=== PATIENT | female | born 1955 | race Caucasian/White ===

== ENCOUNTER → 2016-11-23 | Outpatient (CLI) | payer BC ==
[~2016-11-23] MED LIST: ACET-2469 PO; ALBU17AE23 IH; ALLERGY SHOTS WEEKLY; ALPR.5T PO; ALPR0.5T PO; AMOX-355 PO; ATROPINE; ATRV10T PO; CA C1TAB26 PO; CHLO1CAP; CHLO1CAP PO; CHLORDIAZEPOXIDE; CHOL200025 PO; CLCX200C; CLIDINIUM; CRS350T; DCS100C PO; DILT300C PO; DILTIAZEM 300 MG; DIPHENOXYLATE; DULO20CA; DULO20CA PO; ESTR0.3T; FEXO180T PO; FEXO180T84 PO; FEXO60CA19; FLOVENT HFA; FLUT1DIS27 IH; HYDR-3720 PO; HYDR-3812 PO; HYDR1TAB PO; HYDR1TAB3 PO; INDA2.5T2 PO; INDAPAMIDE 2.5 MG; KCL20TCR PO; KLOR CON; LISI10TA2; LOSA100T16 PO; MULT-1029 PO; NABU750T; NABU750T PO; NFR150C PO; OMEP20CA12 PO; ONDAN4ODT PO; OXYC1TAB95 PO; PNT40TEC PO; POTA20TA8 PO; PRD20T PO; PREMARIN 0.3MG; PROAIR HFA; RT-ALBUINH IH; TRM50T; VITA1CAP59 PO; WRF2.5T PO; [UNRECOGNIZED DRUG - CODE] PO; [UNRECOGNIZED DRUG - OTHER]
--- OUTSIDE RECORDS SUMMARY | 2016-11-23 14:52 | XMS REPORT | Continuity of Care Document ---
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 Medications Current Home Medications Medication Dose Units Route Directions Days/Qty Instructions Start Date Tramadol Hcl 50 Mg Three Times A Day 03/28/10 [Allergy Shots Weekly] 03/28/10 Indapamide 2.5 Mg 2.5 Mg Oral Daily 08/23/12 Atorvastatin Calcium 10 Mg 1 Each Oral Daily 08/23/12 Losartan Potassium 100 Mg 1 Each Oral Daily 08/23/12 Mu-Vits-Min Th/Lycopene/Lutein 1 Each 1 Each Oral Daily 08/23/12 Vitamin B Complex 1 Cap 1 Cap Oral Daily 08/23/12 Diltiazem Hcl (Cartia Xt) 300 Mg 1 Each Oral Daily 11/23/14 Omeprazole 20 Mg 20 Mg Oral Daily 30 11/23/14 Duloxetine Hcl 20 Mg 20 Mg Oral Twice A Day 07/20/16 Fexofenadine Hcl 180 Mg 180 Mg Oral Daily 07/20/16 Alprazolam 0.5 Mg 0.5 Mg Oral Every 8HRS 07/20/16 Fluticasone/Salmeterol 1 Each 1 Each Inhalation Twice A Day 07/20/16 Albuterol Sulfate 18 Gm 2 Puff Inhalation Q 4-6HRS 07/20/16 Cholecalciferol (Vitamin D3) 2,000 Unit 2,000 Unit Oral Daily Potassium Chloride 20 Meq 20 Meq Oral Twice A Day 07/20/16 Acetaminophen/Diphenhydramine 1 Each 2 Each Oral Every 6 Hours for Pain 07/23/16 Hydrocodone/Acetaminophen 1 Each 1-2 Each Oral Every 4HRS as needed for Pain 40 07/23/16 Prednisone 20 Mg 20 Mg Oral As Directed 12 07/23/16 Amoxicillin/Potassium Clav 1 Each 1 Each Oral Twice A Day 7 Days 07/23 Past Home Medications Medication Directions Ordered Status [Klor-Con 8MEG] , 09/15/07 Discontinued [Premarin 0.3MG] , 09/15/07 Discontinued [Cartia Xt Er 300MG] , 09/15/07 Discontinued [Indopamide 2.5MG] , 09/15/07 Discontinued Fexofenadine Hcl 60 Mg Capsule, 09/15/07 Discontinued Celecoxib 200 Mg Capsule, 09/15/07 Discontinued [Chlordiaz/Clid 5/2.5] , 09/15/07 Discontinued [Diph-Atro 2.5/0.25] , 09/15/07 Discontinued [Equate Antidiarrheal] , 09/15/07 Discontinued [Proair Hfa] , 09/15/07 Discontinued [Flovent Hfa] , 09/15/07 Discontinued Acetaminophen/Hydrocodone Bitart 1 Each Tablet, 1 - 2 Each Oral Q4hr Prn 14/07 Discontinued Potassium Chloride 20 Meq Tabsr, 2 Each Oral Daily 03/28/10 Discontinued Estrogens Conjugated 0.3 Mg Tab, Daily 03/28/10 Discontinued Diltiazem Hcl (Cardizem Cd) 300 Mg Cap.sr.24h, 1 Each Oral Daily 03/28/10 Discontinued Indapamide 2.5 Mg Tab, 2.5 Mg Oral Daily 03/28/10 Discontinued Lisinopril 10 Mg Tablet, Daily 03/28/10 Discontinued Nabumetone 750 Mg Tablet, Daily 03/28/10 Discontinued [Yovcbrzq17 Mg] , Twice A Day 03/28/10 Discontinued Fexofenadine Hcl 180 Mg Tablet, 1 Tab Oral Daily 03/28/10 Discontinued Chlordiazepoxide/Clidinium (Librax) 1 Each Capsule, 03/28/10 Discontinued Alprazolam 0.5 Mg Tablet, 1 Tab Oral Three Times A Day And Prn 03/28/10 Discontinued Salmeterol Xinafoate/Fluticasone 1 Disk Inhp, 1 Puff Inhalation Twice A Day 03/28/10 Discontinued Albuterol 17 Gm Aerosol, 2 Puff Inhalation 4-6 Times Daily 03/28/10 Discontinued Oxycodone/Acetaminophen 1 Each Tablet, 1 Each Oral Q 4 - 6 Hrs Prn 03/28/10 Discontinued Carisoprodol 350 Mg Tablet, Qid Prn 03/28/10 Discontinued Ondansetron Hcl 4 Mg Tab, 4 Mg Oral Every 4HRS 03/28/10 Discontinued Diltiazem Hcl (Cartia Xt) 300 Mg Cap.sr.24h, 1 Each Oral Daily 08/23/12 Discontinued Duloxetine Hcl 20 Mg Capsule.dr, 2 Each Oral Daily 08/23/12 Discontinued Nabumetone 750 Mg Tablet, 750 Mg Oral Daily 08/23/12 Discontinued Chlordiazepoxide/Clidinium (Librax) 1 Each Capsule, 1 Each Oral Daily Discontinued Salmeterol Xinafoate/Fluticasone 1 Disk Inhp, 1 Puff Inhalation Twice A Day 08/23/12 Discontinued Ca Cmb No.1/Vit D3/B-6/Fa/B12 1 Each Tablet, 2 Each Oral Daily 08/23/12 Discontinued Pantoprazole Sodium 40 Mg Tablet.dr, 1 Tab Oral Daily 08/23/12 Discontinued Hydrocodone Bit/Acetaminophen 1 Each Tablet, 1 Each Oral Bedtime 08/23/12 Discontinued Acetaminophen/Hydrocodone Bitart 1 Ea Tab, 1 Ea Oral Q6hr Prn 09/01/12 Discontinued Polysaccharide Iron Complex 150 Mg Cap, 1 Each Oral Twice A Day 09/01/12 Discontinued Warfarin Sodium 2.5 Mg Tab, 2.5 Mg Oral Daily@18 09/01/12 Discontinued Acetaminophen/Hydrocodone Bitart 1 Ea Tab, 1 Ea Oral Q6hr Prn 09/01/12 Discontinued Docusate Sodium 100 Mg Cap, 100 Mg Oral Twice A Day 11/23/14 Discontinued Social History Social History Problem Response Recorded Date/Time Recreational Drug Use No 07/23/2016 7:45am Recent Foreign Travel No 07/23/2016 7:45am Recent Infectious Disease Exposure No 07/23/2016 7:45am Sexually Transmitted Disease No 07/23/2016 7:45am HIV/AIDS No 07/23/2016 7:45am Smoking Status Never a Smoker 07/23/2016 7:45am Sexually Transmitted Disease No 07/23/2016 7:45am Query Response Start Date Stop Date Smoking Status Never a Smoker Hospital Discharge Instructions No hospital discharge instructions. Plan of Care Discharge Date 07/23/16 12:29pm Instructions/Education Provided ANESTHESIA INSTRUCTIONS POSTOP DR. RAMEY-SINUS SURGERY DR. RAMEY-NASAL IRRIGATION Prescriptions See Medication Section Functional Status No functional status results. Allergies, Adverse Reactions, Alerts No known allergies. Immunizations No immunization records. Vital Signs Acute Vital Signs Vital Response Date/Time Temperature (Fahrenheit) 97.7 degrees F (97.6 - 99.5) 07/23/2016 12:10pm Temperature (Calculated Celsius) 36.87184 degrees C (36.4 - 37.5) 07/23/2016 12:10pm Temperature Source Temporal 07/23/2016 12:10pm Pulse Rate (adult) 71 bpm (60 - 90) 07/23/2016 12:10pm Respiratory Rate 16 bpm (12 - 24) 07/23/2016 12:10pm O2 Sat by Pulse Oximetry 96 % (88 - 100) 07/23/2016 12:10pm Blood Pressure 133/71 mm Hg 07/23/2016 12:10pm Blood Pressure Mean 93 mm Hg 07/23/2016 7:45am Pain Numeric Pain Scale 8 07/23/2016 11:15am Pain Intensity 3 07/23/2016 12:10pm Height (Feet) 5 feet 07/23/2016 7:45am Height (Inches) 5.50 inches 07/23/2016 7:45am Height (Calculated Centimeters) 166.505092 cm 07/23/2016 7:45am Weight (Pounds) 243 pounds 07/23/2016 7:45am Weight (Ounces) 9.0 oz 07/23/2016 7:45am Weight (Calculated Grams) 202712.09 gm 07/23/2016 7:45am Weight (Calculated Kilograms) 110.819019 kilograms 07/23/2016 7:45am Calculated BMI 39.9 07/23/2016 7:45am Capillary Refill Capillary Refill Less Than 3 Seconds 07/23/2016 7:45am Results Pending Laboratory Results Test Name Collection Date/Time Pending Microbiology Results Procedure Source Collection Date/Time Procedures Procedure Status Date Provider(s) Endoscopic sinus surgery Completed 07/23/16 SHARA RAMEY MD Tracing only of electrocardiogram Completed 07/20/16 SHARA RAMEY MD Encounters Encounter Location Arrival/Admit Date Discharge/Depart Date Attending Provider Departed [facility] 07/23/16 7:20am 12:29pm SHARA RAMEY MD Departed Clinic [facility] 07/20/16 9:12am 07/20/16 11: 11am SHARA RAMEY MD
--- NOTE | 2016-11-23 17:49 | Diagnostic Imaging Report ---
EXAMINATION: PA and lateral chest at 03:13 p.m. INDICATION: Cough. FINDINGS: The mild cardiomegaly noted on 10/17/2015 is again evident and no different. The lungs seem generally clear on the PA view. However, on the lateral view, there is a suggestion of a small area of slightly increased density overlying the cardiac silhouette. It is difficult to identify with certainty on the PA view. However, this appearance does raise the question of a small area of pneumonia/atelectasis involving the right middle lobe. Clinical follow-up is recommended. The lungs are otherwise clear. There is no sign of a pleural effusion. The mediastinum is not widened. The osseous structures are intact. The orthopedic hardware overlying the cervicothoracic junction seen previously is again evident and no different. IMPRESSION: 1. There is a question of mild pneumonia/atelectasis involving the right middle lobe. Clinical follow-up is recommended. 2. There is no acute cardiopulmonary abnormality identified otherwise. Dictated by: Dictated on workstation # [id number]
== END ==
LOC: RAD 14:48
PROVIDERS: ATTEND Family Medicine
DX: R05 Cough (principal)
CPT/HCPCS: 71020

== ENCOUNTER → 2017-06-04 | Outpatient (CLI) | payer BC | LOC: LAB 19:29 | PROVIDERS: ATTEND Nurse Practitioner Family | DX: R10.84 Generalized abdominal pain (principal) | CPT/HCPCS: 87088 ==

== ENCOUNTER → 2018-05-17 | Outpatient (CLI) | payer BC ==
[~2018-05-17] MED LIST changes: +ACHD5005 PO; -HYDR-3812 PO
--- NOTE | 2018-05-17 12:18 | Diagnostic Imaging Report ---
PROCEDURE: US left lower extremity venous. TECHNIQUE: Multiple real-time grayscale images were obtained over the left lower extremity in various projections. Additional duplex Doppler and color Doppler images were also obtained. INDICATION: Left leg pain and swelling. Comparison: None available. Findings: The right common femoral, femoral and popliteal veins are patent by color doppler imaging and without DVT. Visualized proximal aspects of the greater saphenous, deep femoral, posterior tibial and peroneal veins are also patent. All of the evaluated deep venous structures demonstrate normal compressibility and waveform augmentation where applicable. Impression: No right lower extremity deep venous thrombosis (DVT). Dictated by: Dictated on workstation # [id number]
== END ==
LOC: RAD 11:22
PROVIDERS: ATTEND Family Medicine
DX: M79.605 Pain in left leg (principal); M79.89 Other specified soft tissue disorders

== ENCOUNTER → 2018-10-27 | Outpatient (CLI) | payer BC ==
--- NOTE | 2018-10-27 10:12 | Diagnostic Imaging Report ---
CLINICAL INDICATION: Patient with chronic sinusitis and sinus pressure. Patient has history of sinus surgery. EXAM: Axial CT scan of the maxillofacial structures with coronal reformatted images. COMPARISON: Axial CT scan of the maxillofacial structures dated 03/26/2016. FINDINGS: There is minimal mucosal thickening involving the ethmoid sinus. Frontal sinus, sphenoid sinus, and both maxillary sinuses are clear. The mild sinus disease in both maxillary sinus regions has resolved. There is interval postop changes to the paranasal sinuses with bilateral medial maxillary wall antrostomies, bilateral uncinectomies, partial bilateral middle turbinectomies, and partial ethmoidectomies. There is no significant nasal cavity mucosal thickening. Temporal bone structures show no significant abnormality. The extracranial soft tissue, globes and orbits are unremarkable. Nasal septum is midline, stable. IMPRESSION: 1: Interval improved paranasal sinus disease with minimal ethmoid sinus mucosal thickening present. 2: Interval postop changes to the paranasal sinuses, as described above. Dictated by: Dictated on workstation # [id number]
== END ==
LOC: RAD 09:40
PROVIDERS: ATTEND Otolaryngology Otolaryngology/Facial Plastic Surgery
DX: J32.9 Chronic sinusitis, unspecified (principal); Z98.890 Other specified postprocedural states
CPT/HCPCS: 70486

== ENCOUNTER 2020-01-09 17:55 | Emergency (ER) | payer BC ==
[~2020-01-09] VITALS: Ht 165 cm; Wt 113.2 kg
[~2020-01-09 17:55] MED LIST changes: -ACET-2469 PO; +ACET-2715 PO
[2020-01-09 18:35] VITALS: BP_SYST 126; BP_SYST 140; BP_SYST 147; BP_DIAS 75; BP_DIAS 76; BP_DIAS 79
[2020-01-09] MEDS ORDERED: FAMOTIDINE 20 MG (PEPCID) TABLET PO STA (18:39)
[2020-01-09] MEDS ORDERED: ANTACID SUSP 30 ML UDC (MYLANTA) PO ONE (18:45)
[2020-01-09] MEDS ORDERED: LIDOCAINE 2% VISCOUS 15 ML UDC PO ONE (18:45)
[2020-01-09] MEDS ORDERED: ONDANSETRON 4 MG/2 ML (SDV) Z0FRAN IVP ONE (18:45)
[2020-01-09] MEDS ORDERED: NS IV 1000 ML 1,000 ML IV SCH (18:46)
--- NOTE | 2020-01-09 18:46 | ED Abdominal Pain ---
General Chief Complaint: Rect Problems Stated Complaint: ABDOMINAL PAIN Source of Information: Patient, Spouse Exam Limitations: No Limitations History of Present Illness Date Seen by Provider: Jan 09, 2020 Time Seen by Provider: 18:23 Initial Comments Patient presents ER by private conveyance with chief complaint of one week of black tarry stools, generalized abdominal pain starting in her epigastric region radiating up like an acid reflux sensation. She has not taken her omeprazole today. She has a long-standing history of GERD. She just started about a week ago with increased 3 potassium tablets twice a day because her last labs showed her potassium to be a little low. She said about that same time she started having increasing pain and black tarry stools. She's having some mild nausea but no vomiting. No fevers or chills. No cough shortness of breath or chest pain. She has had scopes done in the past lower and upper GI 5 or [address] Rebolledo as well as Dr. Berumen, gastroenterology at [facility]. She says the colonoscopy was normal. She does not remember any concerns with the upper GI. She's had her tubes tied in the past. She's had multiple other surgeries outside of her abdomen. She had a melanoma removed off the back of her leg 27 years ago. She does not have any cardiac history. She did follow up with Dr. Elise a couple times just for hypertension management. Dr. Rascon is her primary care doctor. Allergies and Home Medications Allergies Coded Allergies: No Known Drug Allergies (Unverified , 07/20/16) Home Medications Acetaminophen/Diphenhydramine 1 Each Tablet, 2 EACH PO Q6H, (Reported) Albuterol Sulfate 18 Gm Hfa.aer.ad, 2 PUFF IH Q 4-6HRS, (Reported) Alprazolam 0.5 Mg Tablet, 0.5 MG PO Q8H, (Reported) Amoxicillin/Potassium Clav 1 Each Tablet, 1 EACH PO BID Prescribed by: JOSE NUGENT on 07/23/16 1129 Atorvastatin Calcium 10 Mg Tablet, 1 EACH PO DAILY, (Reported) Cholecalciferol (Vitamin D3) 2,000 Unit Tablet, 2,000 UNIT PO DAILY, (Reported) Diltiazem Hcl 300 Mg Cap.sr.24h, 1 EACH PO DAILY, (Reported) Duloxetine HCl 20 Mg Cap, 20 MG PO BID, (Reported) Fexofenadine HCl 180 Mg Tablet, 180 MG PO DAILY, (Reported) Fluticasone/Salmeterol 1 Each Blst.w.dev, 1 EACH IH BID, (Reported) Hydrocodone Bit/Acetaminophen 1 Each Tablet, 1-2 EACH PO Q4H PRN for PAIN Prescribed by: JOSE UNGENT on 07/23/16 1129 Indapamide 2.5 Mg Tablet, 2.5 MG PO DAILY, (Reported) Losartan Potassium 100 Mg Tablet, 1 EACH PO DAILY, (Reported) Mu-Vits-Min Th/Lycopene/Lutein 1 Each Tablet, 1 EACH PO DAILY, (Reported) Omeprazole 20 Mg Capsule.dr, 20 MG PO DAILY, (Reported) Potassium Chloride 20 Meq Tab.er.prt, 20 MEQ PO BID, (Reported) Prednisone 20 Mg Tab, 20 MG PO UD Prescribed by: JOSE NUGENT on 07/23/16 1129 Tramadol Hcl 50 Mg Tab, TID, (Reported) Vitamin B Complex 1 Cap Capsule, 1 CAP PO DAILY, (Reported) Patient Home Medication List Home Medication List Reviewed: Yes Review of Systems Review of Systems Constitutional: No chills, No diaphoresis EENTM: No Blurred Vision, No Double Vision Respiratory: Denies Cough, Denies Shortness of Air Cardiovascular: Denies Chest Pain, Denies Edema Gastrointestinal: See HPI; Denies Abdomen Distended; Abdominal Pain; Denies Constipated, Denies Diarrhea; Nausea, Poor Appetite; Denies Vomiting Genitourinary: Denies Burning, Denies Discharge Musculoskeletal: No back pain, No joint pain Skin: No pruritus, No rash All Other Systems Reviewed Negative Unless Noted: Yes Past Qjsdiag-Vkgxrc-Mmlavb Hx Patient Social History Alcohol Use: Denies Use Recreational Drug Use: No Smoking Status: Never a Smoker Recent Foreign Travel: No Contact w/Someone Who Travel: No Recent Hopitalizations: Yes (SURGERIES, RECENT MOLE REMOVED FROM LEFT SHOULDER BLADE) Immunizations Up To Date Tetanus Booster (TDap): Less than 5yrs PED Vaccines UTD: Yes Date of Pneumonia Vaccine: Nov 23, 2012 Date of Influenza Vaccine: Nov 23, 2012 Past Medical History Surgeries: Yes (LIPOMA UNDER R ARM X3, WISDOM TEETH, BILAT LITTLE TOES, L KNEE SCOPE, ) Respiratory: Yes Asthma Cardiac: Yes Neurological: Yes Reproductive Disorders: Yes Sexually Transmitted Disease: No HIV/AIDS: No Gastrointestinal: Yes Gastroesophageal Reflux, Diverticulosis, Irritable Bowel Musculoskeletal: Yes (OSTEOARTHRITIS) Degenerate Disk Disease, Arthritis, Fibromyalgia Endocrine: No Loss of Vision: Bilateral Hearing Impairment: Denies Cancer: Yes (CLL-CHRONIC LYMPHATIC LEUKEMIA, NHL-NONHODGKINS LYMPHOMA) Melanoma Psychosocial: Yes (TAKES CYMALTA FOR FIBROMYALGIA) Anxiety Integumentary: Yes (DERMATITIS) Blood Disorders: Yes (HX ANEMIA) Adverse Reaction/Blood Tranf: No (N/A) Physical Exam Vital Signs Capillary Refill : Height/Weight/BMI Height: 5'5.50" Weight: 243lbs. 9.0oz. 110.495153nk; 40.43 BMI Method: General Appearance: WD/WN, no apparent distress HEENT: PERRL/EOMI, pharynx normal Neck: full range of motion, supple, normal inspection Respiratory: lungs clear, normal breath sounds, no respiratory distress, no accessory muscle use Cardiovascular: normal peripheral pulses, regular rate, rhythm Peripheral Pulses: 2+ Radial Pulses (R), 2+ Radial Pulses (L) Gastrointestinal: normal bowel sounds (active), non tender, soft, no organomegaly Rectal: normal exam, normal rectal tone (rectal vault free of mass or stool), black stool; No mass Neurologic/Psychiatric: alert, normal mood/affect, oriented x 3 Skin: normal color, warm/dry Progress/Results/Core Measures Results/Orders Lab Results Laboratory Tests Test 01/09/20 18:38 Range/Units White Blood Count 15.7 H 4.3-11.0 10^3/uL Red Blood Count 4.57 4.35-5.85 10^6/uL Hemoglobin 12.3 11.5-16.0 G/DL Hematocrit 38 35-52 % Mean Corpuscular Volume 83 80-99 FL Mean Corpuscular Hemoglobin 27 25-34 PG Mean Corpuscular Hemoglobin Concent 32 32-36 G/DL Red Cell Distribution Width 15.6 H 10.0-14.5 % Platelet Count 393 130-400 10^3/uL Mean Platelet Volume 9.3 7.4-10.4 FL Neutrophils (%) (Auto) 77 H 42-75 % Lymphocytes (%) (Auto) 16 12-44 % Monocytes (%) (Auto) 6 0-12 % Eosinophils (%) (Auto) 1 0-10 % Basophils (%) (Auto) 0 0-10 % Neutrophils # (Auto) 12.0 H 1.8-7.8 X 10^3 Lymphocytes # (Auto) 2.5 1.0-4.0 X 10^3 Monocytes # (Auto) 1.0 0.0-1.0 X 10^3 Eosinophils # (Auto) 0.2 0.0-0.3 10^3/uL Basophils # (Auto) 0.0 0.0-0.1 10^3/uL Neutrophils % (Manual) 69 % Lymphocytes % (Manual) 25 % Monocytes % (Manual) 3 % Eosinophils % (Manual) 1 % Band Neutrophils 2 % Dohle Bodies SLIGHT Blood Morphology Comment NORMAL Sodium Level 138 135-145 MMOL/L Potassium Level 3.6 3.6-5.0 MMOL/L Chloride Level 98 98-107 MMOL/L Carbon Dioxide Level 26 21-32 MMOL/L Anion Gap 14 5-14 MMOL/L Blood Urea Nitrogen 10 7-18 MG/DL Creatinine 0.67 0.60-1.30 MG/DL Estimat Glomerular Filtration Rate > 60 BUN/Creatinine Ratio 15 Glucose Level 91 70-105 MG/DL Calcium Level 9.9 8.5-10.1 MG/DL Corrected Calcium 9.6 8.5-10.1 MG/DL Magnesium Level 2.1 1.6-2.4 MG/DL Total Bilirubin 0.3 0.1-1.0 MG/DL Aspartate Amino Transf (AST/SGOT) 20 5-34 U/L Alanine Aminotransferase (ALT/SGPT) 26 0-55 U/L Alkaline Phosphatase 110 40-136 U/L Total Protein 7.3 6.4-8.2 GM/DL Albumin 4.4 3.2-4.5 GM/DL My Orders Orders - MARGARITA MCCRAY Occult Blood Stool (01/09/20 18:39) Cbc With Automated Diff (01/09/20 18:39) Comprehensive Metabolic Panel (01/09/20 18:39) Magnesium (01/09/20 18:39) Ondansetron Injection (Zofran Injectio (01/09/20 18:45) Lidocaine 2% Viscous 15 Ml (Xylocaine Vi (01/09/20 18:45) Famotidine Tablet (Pepcid Tablet) (01/09/20 18:39) Antacid Suspension (Mylanta Suspension (01/09/20 18:45) Ed Iv/Invasive Line Start (01/09/20 18:46) Ns Iv 1000 Ml (Sodium Chloride 0.9%) (01/09/20 18:46) Manual Differential (01/09/20 18:38) Medications Given in ED Current Medications Medications Dose Ordered Sig/Rolando Route Start Time Stop Time Status Last Admin Dose Admin Al Hydrox/Mg Hydrox/Simethicone 30 ml ONCE ONCE PO 01/09/20 18:45 01/09/20 18:46 DC 01/09/20 18:53 30 ML Lidocaine HCl 15 ml ONCE ONCE PO 01/09/20 18:45 01/09/20 18:46 DC 01/09/20 18:54 15 ML Ondansetron HCl 4 mg ONCE ONCE IVP 01/09/20 18:45 01/09/20 18:46 DC 01/09/20 18:54 4 MG Progress Progress Note #1: Time: 18:44 Progress Note Plan to check some labs to see if she is significant delay anemic. Fecal occult blood test. She has a tiny amount of black stool in the rectal vault. GI cocktail. Orthostatic vital signs do demonstrate a significant dip from 146 to 126 systolic lying to standing. Plan to give her a liter fluids and reexamined. Progress Note #2: Time: 20:32 Progress Note She received some relief from the GI cocktail. She has not had any diarrhea or vomiting. She's not longer having nausea. Plan to send her home with some ondansetron, Carafate and omeprazole twice a day. She can follow-up with either her GI doctor or Dr. Rebolledo who have both scoped her in the past to talk about whether an upper GI endoscopy would be indicated. Fecal occult blood test was negative initially. Departure Impression Primary Impression: Gastritis Qualified Codes: K29.00 - Acute gastritis without bleeding Disposition: HOME, SELF-CARE Condition: Stable Departure-Patient Inst. Decision time for Depature: 20:20 Referrals: VALERY RASCON MD (PCP/Family) Primary Care Physician Patient Instructions: Gastritis (DC) Add. Discharge Instructions: You may resume your maintenance dose of potassium. Take potassium with meals. For the next 2 weeks you should take Carafate 30 minutes prior to meals and at bedtime for a total of 4 times a day. Omeprazole 20 mg twice a day for the next month. Ondansetron one tablet every 6 hours as needed for nausea or vomiting. Call your GI doctor or Dr. Rebolledo for follow-up over the next week or 2. Return to the ER if you begin to experience intractable pain despite Tylenol and ibuprofen, nausea and vomiting despite ondansetron or fever. All discharge instructions reviewed with patient and/or family. Voiced understanding. Scripts Ondansetron (Ondansetron Odt) 4 Mg Tab.rapdis 4 MG PO Q6H PRN for NAUSEA/VOMITING, #8 TAB 0 Refills Prov: MARGARITA MCCRAY 01/09/20 Sucralfate (Carafate) 1 Gm Tablet 1 GM PO QIDACHS for 14 Days, #56 TAB 0 Refills Prov: MARGARITA MCCRAY 01/09/20 Omeprazole (Omeprazole) 20 Mg Capsule.dr 20 MG PO BID for 30 Days, #60 CAP 0 Refills Prov: MARGARITA MCCRAY 01/09/20 Copy Copies To 1: ALISHA REBOLLEDO DO MARGARITA MCCRAY Jan 09, 2020 18:46
[2020-01-09 18:47] LABS: BASOPHILS % (AUTO) 0 % (0-10); EOSINOPHILS # (AUTO) 0.2 10^3/uL (0.0-0.3); EOSINOPHILS % (AUTO) 1 % (0-10); HEMATOCRIT 38 % (35-52); HEMOGLOBIN 12.3 G/DL (11.5-16.0); LYMPHOCYTES # (AUTO) 2.5 X 10^3 (1.0-4.0); LYMPHOCYTES % (AUTO) 16 % (12-44); MEAN CORPUSCULAR HEMOGLOBIN 27 PG (25-34); MEAN CORPUSCULAR HGB CONC 32 G/DL (32-36); MEAN CORPUSCULAR VOLUME 83 FL (80-99); MEAN PLATELET VOLUME 9.3 FL (7.4-10.4); MONOCYTES % (AUTO) 6 % (0-12); NEUTROPHILS % (AUTO) 77 % (42-75); PLATELET COUNT 393 10^3/uL (130-400); RED CELL DISTRIBUTION WIDTH 15.6 % (10.0-14.5); WHITE BLOOD COUNT 15.7 10^3/uL (4.3-11.0)
[2020-01-09 19:04] LABS: BAND NEUTROPHILS 2 %; EOSINOPHILS % (MANUAL) 1 %; LYMPHOCYTES % (MANUAL) 25 %; MONOCYTES % (MANUAL) 3 %; NEUTROPHILS % (MANUAL) 69 %; RBC MORPH NORMAL
[2020-01-09 19:10] LABS: ALANINE AMINOTRANSFERASE 26 U/L (0-55); ALBUMIN 4.4 GM/DL (3.2-4.5); ALKALINE PHOSPHATASE 110 U/L (40-136); BILIRUBIN,TOTAL 0.3 MG/DL (0.1-1.0); BUN/CREATININE RATIO 15; CALCIUM 9.9 MG/DL (8.5-10.1); CARBON DIOXIDE 26 MMOL/L (21-32); CHLORIDE 98 MMOL/L (98-107); CREATININE SERUM 0.67 MG/DL (0.60-1.30); GFR ESTIMATED > 60; GLUCOSE 91 MG/DL (70-105); MAGNESIUM 2.1 MG/DL (1.6-2.4); POTASSIUM 3.6 MMOL/L (3.6-5.0); SODIUM 138 MMOL/L (135-145); TOTAL PROTEIN 7.3 GM/DL (6.4-8.2)
[2020-01-09] MEDS ORDERED: ONDA4TAB11 PO (20:32)
[2020-01-09] MEDS ORDERED: SUCR1TAB36 PO (20:32)
[2020-01-09] MEDS ORDERED: OMEP20CA18 PO (20:32)
[2020-01-09] MEDS ORDERED: RX-ONDANSETRON 4 MG ODT (ZOFRAN) PPK #4 PO STA (20:33)
[2020-01-09 20:44] VITALS: BP 155/84
== END 2020-01-09 20:44 | disposition home or self-care (01) ==
LOC: EDUNIT# 17:55 → ER 17:58
DX: K29.70 Gastritis, unspecified, without bleeding (principal); K21.9 Gastro-esophageal reflux disease without esophagitis; I10 Essential (primary) hypertension; J45.909 Unspecified asthma, uncomplicated; F41.9 Anxiety disorder, unspecified; Z85.820 Personal history of malignant melanoma of skin
CPT/HCPCS: 36415; 80053; 83735; 85007; 85027

== ENCOUNTER 2020-01-23 05:40 | Outpatient (CLI) | payer BC ==
[~2020-01-23] VITALS: Ht 165 cm; Wt 68.0 kg
[~2020-01-23 05:40] MED LIST changes: +OMEP20CA18 PO; +ONDA4TAB11 PO; +SUCR1TAB36 PO
[2020-01-23] MEDS ORDERED: CHOL500049 PO (10:44)
[2020-01-23] MEDS ORDERED: ACET325T38 PO (10:44)
[2020-01-23] MEDS ORDERED: ATOR10TA66 PO (10:44)
[2020-01-23] MEDS ORDERED: DOCU100T7 PO (10:44)
[2020-01-23] MEDS ORDERED: CARB-254 OP (10:44)
[2020-01-23] MEDS ORDERED: LOSA100T57 PO (10:44)
[2020-01-23] MEDS ORDERED: FAMO-208 PO (10:44)
[2020-01-23] MEDS ORDERED: MULT-618 PO (10:44)
[2020-01-23] MEDS ORDERED: METO-333 PO (10:44)
[2020-01-23] MEDS ORDERED: TRM50T PO (10:44)
[2020-01-23] MEDS ORDERED: SIME80TA66 PO (10:44)
[2020-01-23] MEDS ORDERED: NABU750T PO (10:44)
[2020-01-23] MEDS ORDERED: DILT300C26 PO (10:44)
[2020-01-23] MEDS ORDERED: VITA1CAP19 PO (10:44)
[2020-01-23] MEDS ORDERED: ALB0.5V INH (10:44)
[2020-01-23] MEDS ORDERED: ALPR1TAB7 PO (10:44)
[2020-01-23] MEDS ORDERED: POTA10CA43 PO (10:44)
[2020-01-23] MEDS ORDERED: HYDR50TA3 PO (10:44)
== END 2020-01-23 10:50 | disposition home or self-care (01) ==
LOC: PREOP 05:40
PROVIDERS: ATTEND Surgery
DX: Z01.818 Encounter for other preprocedural examination (principal)

== ENCOUNTER 2020-01-30 07:44 | Day surgery (SDC) | payer BC ==
[~2020-01-30] VITALS: Ht 165 cm; Wt 68.0 kg
[~2020-01-30 07:44] MED LIST changes: +ACET325T38 PO; +ALB0.5V INH; +ALPR1TAB7 PO; +ATOR10TA66 PO; +CARB-254 OP; +CHOL500049 PO; +DILT300C26 PO; +DOCU100T7 PO; +FAMO-208 PO; +HYDR50TA3 PO; +LOSA100T57 PO; +METO-333 PO; +MULT-618 PO; +POTA10CA43 PO; +SIME80TA66 PO; +TRM50T PO; +VITA1CAP19 PO
[2020-01-30] MEDS ORDERED: LACTATED RINGERS 1,000 ML IV STA (08:07)
[2020-01-30] MEDS ORDERED: LACTATED RINGERS 1,000 ML IV ONE (08:07)
[2020-01-30] MEDS ORDERED: HURRICAINE EXT TUBE (BENZOCAINE) XX PRN (08:15)
[2020-01-30] MEDS ORDERED: KETAMINE/NaCl 50 MG/5 ML SYRINGE (ED ONLY) ONE (08:23)
[2020-01-30] MEDS ORDERED: MIDAZOLAM 2 MG/2 ML (VERSED) VIAL ONE (08:23)
[2020-01-30] MEDS ORDERED: proPOfol 200 MG/20 ML (DIPRIVAN) VIAL IV ONE (08:23)
[2020-01-30 08:34] VITALS: BP 148/94
--- NOTE | 2020-01-30 08:53 | Progress Note-Pre Operative ---
Pre-Operative Progress Note H&P Reviewed The H&P was reviewed, patient examined and no changes noted. Date Seen by Provider: Jan 30, 2020 Time Seen by Provider: 08:52 Date H&P Reviewed: Jan 30, 2020 Time H&P Reviewed: 08:52 Pre-Operative Diagnosis: epigastric abd pain, melena, family history colon cancer ALISHA REBOLLEDO DO Jan 30, 2020 08:53
[2020-01-30] MEDS ORDERED: ceFAZolin 2 GM IV Premixed 50 ML IV ONE (09:00)
[2020-01-30] MEDS ORDERED: HURRICAINE EXT TUBE (BENZOCAINE) ONE (09:23)
[2020-01-30 10:10] VITALS: BP 161/76
[2020-01-30 10:15] VITALS: BP 163/78
[2020-01-30] MEDS ORDERED: PANT40TA2 PO (10:20)
--- NOTE | 2020-01-30 10:20 | Discharge Inst-Simple/Standard ---
Discharge Inst-Standard Discharge Medications New, Converted or Re-Newed RX: Transmitted to Pharmacy Patient Instructions/Follow Up Plan of Care/Instructions/FU: Elizabeth 4-6 weeks. Activity as Tolerated: Yes Discharge Diet: Regular Diet ALISHA REBOLLEDO DO Jan 30, 2020 10:20
--- NOTE | 2020-01-30 10:22 | Progress Note-Post Operative ---
Post-Operative Progess Note Surgeon (s)/Milling Operator (s) Surgeon ALISHA REBOLLEDO DO Milling Operator: na Pre-Operative Diagnosis epigastric abd pain, melena, family history colon cancer Post-Operative Diagnosis gastritis, ascending submucosal lipoma, diverticulosis Procedure & Operative Findings Date of Procedure 01/30/20 Procedure Performed/Findings egd c biopsies, colonoscopy Anesthesia Type per [facility] Estimated Blood Loss Estimated blood loss (mL): none Specimens/Packing Specimens Removed antrum, ge ALISHA REBOLLEDO DO Jan 30, 2020 10:22
[2020-01-30 10:45] VITALS: BP 164/84
[2020-01-30 11:03] VITALS: BP 164/84
--- NOTE | 2020-01-30 11:55 | OPERATIVE REPORT ---
DATE OF SERVICE: 01/30/2020 PREOPERATIVE DIAGNOSES: Epigastric abdominal pain, melena, family history of colon cancer. POSTOPERATIVE DIAGNOSES: Gastritis, ascending submucosal lipoma, diverticulosis. PROCEDURE: EGD with biopsies, colonoscopy. SURGEON: Alisha Johnson DO ANESTHESIA: Per MDA. ESTIMATED BLOOD LOSS: None. COMPLICATIONS: None. SPECIMENS: Antrum and GE junction. INDICATIONS: The patient is a 64-year-old female with epigastric abdominal pain, melena and with family history of colon cancer. She understands risks and benefits of procedure and wished to proceed with procedure. Consent was signed in the chart. DESCRIPTION OF PROCEDURE: The patient was taken to the endoscopy suite, placed in left lateral recumbent position. Timeout was performed. Scope was inserted in mouth, down the esophagus, stomach and into the duodenum without difficulty. There were no polyps, masses or ulcerations. Scope was slowly retracted back into the stomach, which had gastritis appearance with small amount of slight oozing of blood. Biopsy of this area was obtained. No masses or ulcerations. Benign appearing polyps throughout the stomach. Scope was retroflexed noting no other pathology. Scope was returned to its normal position, slowly withdrawn to the distal esophagus, which biopsy of the GE junction was obtained. There were no polyps, masses or ulcerations. Scope was then slowly retracted back until completely removed. The patient tolerated procedure well without any complications. Colonoscopy was then performed. Digital rectal exam was performed. There were no palpable polyps, masses or ulcerations. Scope was inserted in the rectum, advanced all the way to cecum with minimal difficulty. Prep was adequate. Scope was then slowly retracted back. There were no polyps, masses or ulcerations within the cecum, ascending colon. In the ascending colon, a submucosal lipoma present. Scope was then continuously retracted back. There were no other polyps, masses or ulcerations within the remainder of the ascending, transverse, descending and sigmoid colon. In sigmoid colon, a minimal amount of diverticulosis present. Scope was then continuously retracted back the rectum where it was also retroflexed noting no other pathology. Scope was returned to its normal position, slowly withdrawn until completely removed. The patient tolerated procedure well without any complications. She was taken to recovery room in stable condition. RECOMMENDATIONS: The patient will be started on Protonix 40 mg daily. We will stop her omeprazole. We would recommend repeat colonoscopy in 5 years unless she has any change before that due to family history of colon cancer. Job ID: [id number] DocumentID: [id number] Dictated Date: 01/30/2020 10:25:15 Marketing Intelligence Manager Date: 01/30/2020 11:53:45 Dictated By: ALISHA JOHNSON DO
--- NOTE | 2020-02-02 13:54 | Anesthesia-General Post-Op ---
MAC Post Op Complications Complications None Follow Up Care/Instructions Patient Instructions None needed. Anesthesiology Discharge Order Discharge Order Post-dated progress note: Patient was seen after the procedure on 01-30-20 at 1025 and she was doing well, no complaints, stable vital signs, no apparent adverse anesthesia problems. ANJU OAKES DO Feb 02, 2020 13:54
== END 2020-01-30 11:03 | disposition home or self-care (01) ==
LOC: ENDO 07:44
PROVIDERS: ATTEND Surgery
DX: K29.70 Gastritis, unspecified, without bleeding (principal); D17.5 Benign lipomatous neoplasm of intra-abdominal organs; K57.30 Diverticulosis of large intestine without perforation or abscess without bleeding; Z80.0 Family history of malignant neoplasm of digestive organs; I10 Essential (primary) hypertension; J45.909 Unspecified asthma, uncomplicated; K21.9 Gastro-esophageal reflux disease without esophagitis; E78.2 Mixed hyperlipidemia; Z79.899 Other long term (current) drug therapy; Z85.820 Personal history of malignant melanoma of skin; E66.01 Morbid (severe) obesity due to excess calories; Z68.41 Body mass index [BMI] 40.0-44.9, adult

== ENCOUNTER → 2020-03-11 | Outpatient (CLI) | payer BC ==
[~2020-03-11] MED LIST changes: +PANT40TA2 PO
--- NOTE | 2020-03-11 10:49 | Diagnostic Imaging Report ---
PROCEDURE: US Gallbladder. TECHNIQUE: Multiple real-time grayscale images were obtained over the right upper quadrant in various projections. INDICATION: Abdominal pain COMPARISON: None FINDINGS: The liver is mildly large measuring 22 cm in length. Echogenicity appears normal. No focal lesions are seen. No biliary dilatation is seen. The main portal vein is hepatopetal. The common bile duct is not seen. The gallbladder wall is not thickened. No shadowing stones are seen. Imaged portions of the pancreas are unremarkable, although portions are obscured by bowel gas. Imaged portions of the aorta and IVC are unremarkable. The right kidney measures 11.3 cm in length. No abnormalities are seen. No free fluid is seen. Sonographic Cee sign is negative. IMPRESSION: 1. No acute gallbladder abnormality is seen. 2. Hepatomegaly with no acute liver abnormalities seen. Dictated by: Dictated on workstation # [id number]
--- NOTE | 2020-03-11 10:49 | Diagnostic Imaging Report ---
INDICATION: Lump along the left posterior calf. TECHNIQUE/FINDINGS: Sonographic interrogation of the area of lump in the left posterior calf was performed. No sonographic abnormality is seen. No solid or cystic mass is detected. IMPRESSION: No sonographic abnormality is detected. Dictated by: Dictated on workstation # [id number]
== END ==
LOC: RAD 08:54
PROVIDERS: ATTEND Surgery
DX: R22.40 Localized swelling, mass and lump, unspecified lower limb (principal); R16.0 Hepatomegaly, not elsewhere classified
CPT/HCPCS: 76705; 76881

== ENCOUNTER → 2020-03-11 | Outpatient (CLI) | payer BC ==
--- NOTE | 2020-03-11 11:28 | Diagnostic Imaging Report ---
INDICATION: Palpable lump right breast. Correlation is made with prior mammogram from 03/16/2018 and 09/17/2016. 2-D and 3-D bilateral diagnostic mammography was performed with CAD. A BB markers placed at the area of palpable abnormality along the medial inferior right breast. Both breasts are heterogeneously dense, limiting the sensitivity of mammography. The parenchymal pattern is stable. There are scattered benign calcifications. No dominant mass or malignant appearing microcalcifications are seen. Axillae are unremarkable. IMPRESSION: BI-RADS 0 No mammographic features suspicious for malignancy are identified. Even so, directed sonographic interrogation of the area of palpable abnormality in the right breast is recommended and will be performed today. ACR BI-RADS Category 0: Incomplete. (Needs additional imaging evaluation). Result letter will be mailed to the patient. Note: At least 10% of breast cancer is not imaged by mammography. Dictated by: Dictated on workstation # [id number]
--- NOTE | 2020-03-11 11:59 | Diagnostic Imaging Report ---
INDICATION: Lump in the lower inner right breast. COMPARISON: Correlation is made with the diagnostic mammogram from earlier this same day. FINDINGS: Sonographic interrogation of the area of lump in the lower inner right breast was performed. No sonographic abnormality is seen. No solid or cystic mass is detected. IMPRESSION: No sonographic abnormality is detected. Continued close and clinical self breast exams are recommended to confirm stability of the palpable abnormality. ACR BI-RADS Category 1: Negative. Dictated by: Dictated on workstation # [id number]
== END ==
LOC: RAD 10:07
PROVIDERS: ATTEND Nurse Practitioner
DX: Z12.31 Encounter for screening mammogram for malignant neoplasm of breast (principal); C91.10 Chronic lymphocytic leukemia of B-cell type not having achieved remission; N63.14 Unspecified lump in the right breast, lower inner quadrant
CPT/HCPCS: 77062; 77066

== ENCOUNTER → 2020-05-07 | Outpatient (CLI) | payer BC ==
--- NOTE | 2020-05-07 09:52 | Diagnostic Imaging Report ---
PROCEDURE: CT Sinus w/o Contrast. TECHNIQUE: Multiple contiguous axial images were obtained through the sinuses without the use of intravenous contrast. Coronal reformations were performed. All CT scans use one or more of the following dose optimizing techniques: automated exposure control, MA and/or KvP adjustment based on a patient size and exam type, or iterative reconstruction. INDICATION: Chronic sinusitis. Headache. Ear problems. COMPARISON: CT sinuses on 10/27/2018. FINDINGS: Surgical changes are again noted in the paranasal sinuses. No evidence of mucosal thickening or fluid levels in the paranasal sinuses. The sphenoethmoid and frontoethmoid recesses are patent and unremarkable. Small nasal polyps are seen along the inferior turbinates. The mastoid air cells are well pneumatized. The bony nasal septum is midline. No acute facial fractures. The globes and orbits are symmetric and unremarkable. Included intracranial contents show no acute abnormalities. The included soft tissues of the head are normal in appearance. IMPRESSION: 1. Stable post surgical changes in the paranasal sinuses. No evidence of active sinus disease. 2. Small nasal polyps along the bilateral inferior turbinates. Dictated by: Dictated on workstation # [id number]
== END ==
LOC: RAD 08:27
PROVIDERS: ATTEND Otolaryngology Otolaryngology/Facial Plastic Surgery
DX: J33.9 Nasal polyp, unspecified (principal); J32.9 Chronic sinusitis, unspecified; Z98.890 Other specified postprocedural states
CPT/HCPCS: 70486

== ENCOUNTER → 2020-07-15 | Outpatient (CLI) | payer BC | LOC: CARD 09:30 | PROVIDERS: ATTEND Internal Medicine Cardiovascular Disease | DX: I34.0 Nonrheumatic mitral (valve) insufficiency (principal); I11.9 Hypertensive heart disease without heart failure; E78.2 Mixed hyperlipidemia; C85.90 Non-Hodgkin lymphoma, unspecified, unspecified site | CPT/HCPCS: 93306 ==

== ENCOUNTER → 2020-08-07 | Outpatient (CLI) | payer BC ==
[~2020-08-07] VITALS: Ht 165 cm; Wt 108.0 kg
[~2020-08-07] MED LIST changes: -ACET-2715 PO; +ACET-3075 PO; +CATHETER FLUSH 10 ML SYR IV PRN; +REGADENOSON 0.4 MG/5 ML SYR (LEXISCAN) IV ONE
[2020-08-07 09:14] VITALS: BP 162/90
--- NOTE | 2020-08-07 12:56 | Cardiology Stress Test Report ---
Stress Test Report Date of Procedure/Referring: Date of Procedure: Aug 07, 2020 PCP Aaron Elise MD Admitting Physician Cesar Mcginnis MD Indications: Dyspnea, hypertension Baseline Heart Rate: 83 Baseline Blood Pressure: Blood Pressure Systolic: 162 Blood Pressure Diastolic: 90 Baseline Vitals Vital Signs Date Time Temp Pulse Resp B/P (MAP) Pulse Ox O2 Delivery O2 Flow Rate FiO2 08/07/20 09:14 86 162/90 (114) 97 Baseline EKG: Baseline EKG: normal sinus rhythm Summary After explaining the procedure to the patient, she signed a consent and then brought to the stress nuclear laboratory. Patient received 0.4 mg Lexiscan for stress test, ECG, heart rate and blood pressure were monitored continuously. Resting and stress dose of radio tracer were injected, imaging was acquired and reviewed in short axis, horizontal long axis and vertical long axis views. TID: 1 SSS: 3 SDS: 3 EF: 60 1. Patient tolerated Lexiscan well 2. Breast attenuation with typical female pattern, mild decreased uptake at the basal to mid anterior wall with subtle reversibility, no significant ischemia or infarction on SPECT images 3. Normal left ventricular size, EF 60 percent AARON ELISE MD Aug 07, 2020 12:56
== END ==
LOC: CARD 08:00
PROVIDERS: ATTEND Internal Medicine Cardiovascular Disease
DX: C85.90 Non-Hodgkin lymphoma, unspecified, unspecified site (principal); E78.2 Mixed hyperlipidemia; I10 Essential (primary) hypertension
CPT/HCPCS: 78452; 93017; A9502

== ENCOUNTER → 2020-09-23 | Outpatient (CLI) | payer BC ==
[~2020-09-23] MED LIST changes: +NABU-90 PO; -REGADENOSON 0.4 MG/5 ML SYR (LEXISCAN) IV ONE
--- NOTE | 2020-09-23 14:14 | Diagnostic Imaging Report ---
INDICATION: Epigastric pain TECHNIQUE: Acquisitions were acquired of the abdomen after administration of 5.44 mCi of technetium 99m Choletec. Ejection fraction was calculated after the patient ingested 8 ounces of Ensure. FINDINGS: There is homogeneous uptake of isotope throughout the liver. Significant accumulation within the gallbladder by 45 minutes. Free flow of activity into the small bowel. Ejection fraction 7.7% IMPRESSION: No evidence of cystic duct obstruction however there is an abnormally low ejection fraction of 7.7% Dictated by: Dictated on workstation # [id number]
== END ==
LOC: CARD 12:45
PROVIDERS: ATTEND Surgery
DX: R10.13 Epigastric pain (principal)
CPT/HCPCS: 78227; A9537

== ENCOUNTER → 2020-10-03 | Outpatient (CLI) | payer BC ==
[~2020-10-03] MED LIST changes: -CATHETER FLUSH 10 ML SYR IV PRN
--- NOTE | 2020-10-03 11:49 | Diagnostic Imaging Report ---
PROCEDURE: US PELVIC (NON OB) TECHNIQUE: Multiple real-time grayscale images were obtained over the pelvis in various projections transabdominally. INDICATION: Pelvic pain. There are no prior pelvic ultrasound examinations available for comparison. By history, the uterus and ovaries are surgically absent. There is no pelvic mass or free fluid collection evident. The urinary bladder is grossly unremarkable. IMPRESSION: 1. There is no evidence for an acute abnormality in this post hysterectomy/bilateral oophorectomy patient. 2. If clinical concern regarding an underlying abnormality persists, then CT of the abdomen and pelvis would be recommended for further study. Dictated by: Dictated on workstation # [id number]
== END ==
LOC: RAD 10:45
PROVIDERS: ATTEND Family Medicine
DX: R10.2 Pelvic and perineal pain (principal)
CPT/HCPCS: 76856

== ENCOUNTER 2020-10-15 05:33 | Outpatient (RCR) | payer BC ==
[~2020-10-15] VITALS: Ht 165.1 cm; Wt 110.0 kg
[2020-10-15] MEDS ORDERED: MTP25TSR PO (10:36)
[2020-10-15] MEDS ORDERED: POTA20TA8 PO (10:36)
[2020-10-15] MEDS ORDERED: PANT40TA52 PO (10:36)
[2020-10-15] MEDS ORDERED: ACHYD1T PO (10:36)
== END 2020-10-15 10:53 | disposition home or self-care (01) ==
LOC: PREOP 05:33
PROVIDERS: ATTEND Surgery
DX: Z01.818 Encounter for other preprocedural examination (principal); K82.8 Other specified diseases of gallbladder; Z20.828 Contact with and (suspected) exposure to other viral communicable diseases
CPT/HCPCS: 87635

== ENCOUNTER 2020-10-17 07:52 | Day surgery (SDC) | payer BC ==
[2020-10-17] VITALS (11 sets, daily range): BP systolic 123–158; BP diastolic 63–94
[~2020-10-17] VITALS: Ht 165.1 cm; Wt 110.0 kg
[~2020-10-17 07:52] MED LIST changes: +ACHYD1T PO; +MTP25TSR PO; +PANT40TA52 PO
--- NOTE | 2020-10-17 08:04 | Progress Note-Pre Operative ---
Pre-Operative Progress Note H&P Reviewed The H&P was reviewed, patient examined and no changes noted. Date Seen by Provider: Oct 17, 2020 Time Seen by Provider: 08:04 Date H&P Reviewed: Oct 17, 2020 Time H&P Reviewed: 08:04 Pre-Operative Diagnosis: biliary dyskinesia, epigastric abd pain ALISHA REBOLLEDO DO Oct 17, 2020 08:04
[2020-10-17] MEDS: LACTATED RINGERS 1,000 ML IV PRN ×2 (08:10→09:25)
[2020-10-17] MEDS ORDERED: LIDOCAINE/EPI 1%-1:100,000 (XYLOCAINE) 20ML ONE (08:20)
[2020-10-17] MEDS ORDERED: IOPAMIDOL 61% 30 ML (ISOVUE 300) VIAL ONE (08:21)
[2020-10-17] MEDS ORDERED: SEVOFLURANE (ULTANE) 15 ML INHAL SOLN ONE ×6 (08:24→09:59)
[2020-10-17] MEDS ORDERED: proPOfol 200 MG/20 ML (DIPRIVAN) VIAL IV ONE (08:24)
[2020-10-17] MEDS ORDERED: fentaNYL INJECTION 100 MCG/2 ML AMP ONE ×2 (08:24→09:30)
[2020-10-17] MEDS ORDERED: LIDOCAINE PF 2% 5 ML (XYLOCAINE) VIAL ONE (08:24)
[2020-10-17] MEDS ORDERED: ONDANSETRON 4 MG/2 ML (SDV) Z0FRAN ONE ×2 (08:24→08:35)
[2020-10-17] MEDS ORDERED: MIDAZOLAM 2 MG/2 ML (VERSED) VIAL ONE (08:24)
[2020-10-17] MEDS ORDERED: ROCURONIUM 10 MG/ML 5 ML SYRINGE IV ONE (08:25)
[2020-10-17] MEDS ORDERED: ceFAZolin 2 GM IV Premixed 50 ML ONE (08:28)
[2020-10-17 08:30] LABS: BASOPHILS # (AUTO) 0.1 10^3/uL (0.0-0.1); BASOPHILS % (AUTO) 1 % (0-10); EOSINOPHILS # (AUTO) 0.2 10^3/uL (0.0-0.3); EOSINOPHILS % (AUTO) 2 % (0-10); HEMATOCRIT 38 % (35-52); HEMOGLOBIN 11.9 g/dL (11.5-16.0); LYMPHOCYTES # (AUTO) 2.5 10^3/uL (1.0-4.0); LYMPHOCYTES % (AUTO) 22 % (12-44); MEAN CORPUSCULAR HEMOGLOBIN 25 pg (25-34); MEAN CORPUSCULAR HGB CONC 31 g/dL (32-36); MEAN CORPUSCULAR VOLUME 81 fL (80-99); MEAN PLATELET VOLUME 9.4 fL (9.0-12.2); MONOCYTES # (AUTO) 0.7 10^3/uL (0.0-1.0); MONOCYTES % (AUTO) 6 % (0-12); NEUTROPHILS # (AUTO) 7.8 10^3/uL (1.8-7.8); NEUTROPHILS % (AUTO) 69 % (42-75); PLATELET COUNT 370 10^3/uL (130-400); WHITE BLOOD COUNT 11.2 10^3/uL (4.3-11.0)
[2020-10-17] MEDS ORDERED: FAMOTIDINE 20MG/2ML IV (PEPCID) ONE (08:34)
[2020-10-17] MEDS ORDERED: SCOPOLAMINE 1.5 MG (TRANSDERM-SCOP) PATCH ONE (08:35)
[2020-10-17] MEDS ORDERED: SCOPOLAMINE 1.5 MG (TRANSDERM-SCOP) PATCH TOP ONE (09:00)
[2020-10-17] MEDS ORDERED: ONDANSETRON 4 MG/2 ML (SDV) Z0FRAN IV ONE (09:00)
[2020-10-17] MEDS ORDERED: MIDAZOLAM 2 MG/2 ML (VERSED) VIAL IV ONE (09:00)
[2020-10-17] MEDS ORDERED: FAMOTIDINE 20MG/2ML IV (PEPCID) IV ONE (09:00)
[2020-10-17] MEDS ORDERED: CATHETER FLUSH 10 ML SYR IV PRN (09:15)
[2020-10-17] MEDS ORDERED: ceFAZolin 2 GM IV Premixed 50 ML IV ONE (09:15)
[2020-10-17] MEDS ORDERED: NEOSTIGMINE 3 MG/3 ML VIAL ONE (09:42)
[2020-10-17] MEDS ORDERED: GLYCOPYRROLATE 0.2 MG/ML (ROBINUL) 2 ML VIAL ONE (09:42)
--- NOTE | 2020-10-17 09:59 | Progress Note-Post Operative ---
Post-Operative Progess Note Surgeon (s)/Resident Care Associate (s) Surgeon ALISHA REBOLLEDO DO Resident Care Associate: Dr. Vicente to assist in retraction dissection and closure Pre-Operative Diagnosis biliary dyskinesia, epigastric abd pain Post-Operative Diagnosis same Procedure & Operative Findings Date of Procedure 10/17/20 Procedure Performed/Findings PROCEDURE: Laparoscopic cholecystectomy with intraoperative cholangiogram. COMPLICATIONS: None. PROCEDURE: The patient was taken to the operating suite and was prepped and draped in sterile fashion. A surgical pause was performed. Just superior to the umbilicus, a 12 mm incision was made. Dissection was taken down to the fascia, which was then scored and grasped with a Blade and the abdomen was then entered. A 0 Vicryl suture was placed in a wsriei-ti-rvoii fashion and a Silver trocar was placed and secured. Pneumoperitoneum was achieved. A 5mm trochar place in the subxyphoid and 2 in the right upper quadrant. The gallbladder was then grasped and elevated. Adhesions to the gallbladder were taken down with cautery and blunt dissection. The cystic duct, and cystic artery were then dissected out. Clip was placed on the distal portion of the cystic duct which was then partially transected. An arrow catheter was inserted into the duct. The cholangiogram was then performed. No filing defects and contrast made its way into the duodenum. Catheter removed. Clips were placed on proximal portion of the cystic duct and then the duct was then transected. Clips were placed along the proximal and distal portion of the cystic artery which was then transected. Hook cautery was used to dissect the gallbladder from the gallbladder fossa achieving hemostasis. The gallbladder was placed in an Endobag and removed through the 12 mm trocar site. The abdomen was then reinspected. Copious amounts of irrigation were used to irrigate the abdomen and there were no signs of active bleeding. Hemostasis had been achieved. The 12 mm fascial defect was then closed with 0 Vicryl suture that had been placed in a yfwksh-jp-ymhwi fashion. The abdomen was then desufflated, the trocars were removed. The abdomen was then washed and dried. The skin was then closed using 4-0 Monocryl in a subcuticular fashion. The abdomen was washed and dried and Skin Affix was place over incisions. Patient tolerated the procedure well without any complications and was taken to the recovery room in stable condition. Anesthesia Type general Estimated Blood Loss Estimated blood loss (mL): minimal Specimens/Packing Specimens Removed gallbladder ALISHA REBOLLEDO DO Oct 17, 2020 09:59
[2020-10-17] MEDS ORDERED: ACHYD1T PO (10:01)
--- NOTE | 2020-10-17 10:01 | Discharge Inst-Simple/Standard ---
Discharge Inst-Standard Discharge Medications New, Converted or Re-Newed RX: RX on Chart Patient Instructions/Follow Up Plan of Care/Instructions/FU: 2-3 weeks Elizabeth Activity as Tolerated: No Discharge Diet: Regular Diet Other Inst to Patient Follow up Appt: Make appointment for 2-3 weeks. Instructions: No lifting greater than 10 pounds. No strenuous activity. May shower in 24 hours, no tub bath or soaking. Use incentive spirometer at home as directed. No Smoking Skin/Wound Care: You have special glue over incision, it will fall off on it's own. Symptoms to Report: Appetite Changes, Extremity Discoloration, Numbness/Tingling, Swelling Increased, Bleeding Excessive, Eyesight Changes, Pain Increased, Urine Color Change, Constipation(Persistent), Fever over 101 degree F, Pain/Pressure in chest, Urinating Difficulty, Cough Up/Vomit Blood, Heart Beat Irreg/Pounding, Pain/Pressure in jaw, Vaginal Bleeding Increase, Cramps in feet or legs, Lightheadedness, Pain/Pressure in shoulder, Diarrhea(Persistent), Memory Changes Suddenly, Questions/Concerns, Weight gain consecutive days, Dizziness/Fainting, Nausea/Vomiting, Shortness of Breath, Weight gain over 2 pounds. If eyes or skin turn yellow notify physician. If questions or concerns contact your physician Or seek help at emergency department. ALISHA REBOLLEDO DO Oct 17, 2020 10:01
--- NOTE | 2020-10-17 10:14 | Anesthesia-General Post-Op ---
General Patient Condition Mental Status/LOC: Same as Preop Cardiovascular: Satisfactory Nausea/Vomiting: Absent Respiratory: Satisfactory Pain: Controlled Complications: Absent Post Op Complications Complications None Follow Up Care/Instructions Patient Instructions None needed. Anesthesia/Patient Condition Patient Condition Patient is doing well, no complaints, stable vital signs, no apparent adverse anesthesia problems. No complications reported per nursing. LILI WHITMAN CRNA Oct 17, 2020 10:14
[2020-10-17] MEDS ORDERED: fentaNYL INJECTION 100 MCG/2 ML AMP IVP ONE (10:15)
[2020-10-17] MEDS ORDERED: PROMETHAZINE INJ 25 MG/ML (PHENERGAN) AMP IVP ONE (10:15)
[2020-10-17] MEDS ORDERED: ONDANSETRON 4 MG/2 ML (SDV) Z0FRAN IVP PRN (10:15)
[2020-10-17] MEDS ORDERED: morphine INJ 10 MG/ML 1ML (SYR OR VIAL) IVP ONE (10:15)
[2020-10-17] MEDS ORDERED: MEPERIDINE (DEMEROL) INJ 50 MG/ML IVP ONE (10:15)
--- NOTE | 2020-10-17 10:22 | Diagnostic Imaging Report ---
INDICATION: Cholecystectomy Operative cholangiogram performed in the routine fashion with contrast injection via the cystic duct stump in surgery. A total of 34 images were obtained. 8 seconds of fluoroscopy time was used. The biliary tree was not dilated. There are no filling defects in the common duct or intrahepatic radicles visualized. There is passage of contrast into the duodenum without obstruction. IMPRESSION: Unremarkable operative cholangiogram. Dictated by: Dictated on workstation # [id number]
[2020-10-17] MEDS ORDERED: HYDROcodone/APAP 10 MG/325 MG (LORTAB) TAB PO ONE ×2 (11:45)
== END 2020-10-17 12:35 | disposition home or self-care (01) ==
LOC: SDC 07:52
PROVIDERS: ATTEND Surgery
DX: K81.1 Chronic cholecystitis (principal); K82.8 Other specified diseases of gallbladder; I10 Essential (primary) hypertension; J45.909 Unspecified asthma, uncomplicated; D64.9 Anemia, unspecified; F41.9 Anxiety disorder, unspecified; G43.909 Migraine, unspecified, not intractable, without status migrainosus; M19.90 Unspecified osteoarthritis, unspecified site; K21.9 Gastro-esophageal reflux disease without esophagitis; E78.2 Mixed hyperlipidemia; E66.9 Obesity, unspecified; Z68.41 Body mass index [BMI] 40.0-44.9, adult; Z79.51 Long term (current) use of inhaled steroids; Z79.899 Other long term (current) drug therapy; Z88.1 Allergy status to other antibiotic agents; Z91.048 Other nonmedicinal substance allergy status; Z90.710 Acquired absence of both cervix and uterus
CPT/HCPCS: 36415; 76000; 85025; 87081; 88304

== ENCOUNTER → 2021-09-16 | Outpatient (CLI) | payer BC ==
[~2021-09-16] MED LIST changes: -HYDR50TA3 PO; +HYDR50TA6 PO; -NABU-90 PO; +NABU-95 PO; +SIME80TA60 PO; -SIME80TA66 PO
--- NOTE | 2021-09-16 12:28 | Diagnostic Imaging Report ---
INDICATION: Routine screening. COMPARISON: 03/11/2020 and 03/16/2018. TECHNIQUE: 2D and 3D bilateral screening mammography was performed with CAD. FINDINGS: Both breasts are heterogeneously dense, limiting the sensitivity of mammography. Scattered benign calcifications are noted. The parenchymal pattern is stable. No mass or malignant-appearing microcalcifications are seen. The axillae are unremarkable. IMPRESSION: No mammographic features suspicious for malignancy are identified. ACR BI-RADS Category 2: Benign findings. Result letter will be mailed to the patient. Note: At least 10% of breast cancer is not imaged by mammography. Dictated by: Dictated on workstation # [id number]
== END ==
LOC: RAD 08:37
PROVIDERS: ATTEND Family Medicine
DX: Z12.31 Encounter for screening mammogram for malignant neoplasm of breast (principal)
CPT/HCPCS: 77063; 77067

== ENCOUNTER → 2021-12-02 | Outpatient (CLI) | payer BC ==
[~2021-12-02] MED LIST changes: +POTA-169 PO; -POTA20TA8 PO
--- NOTE | 2021-12-02 09:59 | Diagnostic Imaging Report ---
INDICATION: Cough COMPARISON: 11/23/2016 FINDINGS: Frontal and lateral views of the chest demonstrates stable cardiac enlargement. Lungs are clear. There is no pneumothorax or effusion. Osseous structures are age-appropriate. IMPRESSION: Cardiac enlargement without pulmonary edema or acute infiltrate. Dictated by: Dictated on workstation # [id number]
== END ==
LOC: RAD 09:18
PROVIDERS: ATTEND Family Medicine
DX: I51.7 Cardiomegaly (principal)
CPT/HCPCS: 71046

== ENCOUNTER → 2021-12-09 | Outpatient (CLI) | payer BC | LOC: CARD 10:30 | PROVIDERS: ATTEND Internal Medicine Cardiovascular Disease | DX: I51.7 Cardiomegaly (principal); I35.1 Nonrheumatic aortic (valve) insufficiency | CPT/HCPCS: 93306 ==

== ENCOUNTER → 2022-01-07 | Outpatient (CLI) | payer BC ==
[~2022-01-07] VITALS: Ht 165 cm; Wt 113.0 kg
[~2022-01-07] MED LIST changes: +CATHETER FLUSH 10 ML SYR IVP PRN; +REGADENOSON 0.4 MG/5 ML SYR (LEXISCAN) IV ONE; -SIME80TA60 PO; +SIME80TA72 PO
[2022-01-07 13:07] VITALS: BP 187/93
--- NOTE | 2022-01-07 14:52 | Cardiology Stress Test Report ---
Stress Test Report Date of Procedure/Referring: Date of Procedure: Jan 07, 2022 PCP Aaron Elise MD Admitting Physician Cesar Mcginnis MD Indications: HTN Baseline Heart Rate: 72 Baseline Blood Pressure: Blood Pressure Systolic: 187 Blood Pressure Diastolic: 93 Baseline Vitals Vital Signs Date Time Temp Pulse Resp B/P (MAP) Pulse Ox O2 Delivery O2 Flow Rate FiO2 01/07/22 13:07 72 187/93 (124) Baseline EKG: Baseline EKG: NSR Summary After explaining the procedure to the patient, she signed a consent and then brought to the stress nuclear laboratory. Patient received 0.4 mg Lexiscan for stress test, ECG, heart rate and blood pressure were monitored continuously. Resting and stress dose of radio tracer were injected, imaging was acquired and reviewed in short axis, horizontal long axis and vertical long axis views. TID: 1.06 SSS: 10 SDS: 10 EF: 62 1. Patient tolerated Lexiscan well 2. Breast attenuation with reversible ischemia involving the anterior wall and anterolateral wall 3. Normal left ventricular size, EF 62% AARON ELISE MD Jan 07, 2022 14:52
== END ==
LOC: CARD 11:45
PROVIDERS: ATTEND Internal Medicine Cardiovascular Disease
DX: I10 Essential (primary) hypertension (principal); I25.10 Atherosclerotic heart disease of native coronary artery without angina pectoris
CPT/HCPCS: 78452; 93017; A9502

== ENCOUNTER 2022-01-21 09:56 | Outpatient (CLI) | payer BC ==
[~2022-01-21 09:56] MED LIST changes: -CATHETER FLUSH 10 ML SYR IVP PRN; -REGADENOSON 0.4 MG/5 ML SYR (LEXISCAN) IV ONE
== END 2022-01-21 10:15 ==
LOC: SLEEP 09:56
PROVIDERS: ATTEND Internal Medicine Cardiovascular Disease
DX: G47.33 Obstructive sleep apnea (adult) (pediatric) (principal); I10 Essential (primary) hypertension
CPT/HCPCS: G0399

== ENCOUNTER 2022-01-28 10:00 | Day surgery (SDC) | payer BC ==
[2022-01-28] VITALS (11 sets, daily range): BP systolic 119–186; BP diastolic 73–90
[~2022-01-28] VITALS: Ht 166.4 cm; Wt 114.8 kg
[2022-01-28 08:49] LABS: BILIRUBIN,URINE NEGATIVE (NEGATIVE); CLARITY,URINE CLEAR; COLOR,URINE YELLOW; GLUCOSE, URINE (UA) NEGATIVE (NEGATIVE); KETONES,URINE TRACE (NEGATIVE); LEUKOCYTE ESTERASE ,URINE 1+ (NEGATIVE); NITRITE,URINE NEGATIVE (NEGATIVE); PROTEIN,URINE TRACE (NEGATIVE)
[2022-01-28 08:51] LABS: HEMATOCRIT 40 % (35-52); MEAN CORPUSCULAR HEMOGLOBIN 28 pg (25-34); MEAN CORPUSCULAR HGB CONC 33 g/dL (32-36); MEAN CORPUSCULAR VOLUME 84 fL (80-99); MEAN PLATELET VOLUME 9.6 fL (9.0-12.2); PLATELET COUNT 370 10^3/uL (130-400); WHITE BLOOD COUNT 8.4 10^3/uL (4.3-11.0)
[2022-01-28 08:58] LABS: INR 0.9 (0.8-1.4); PROTHROMBIN TIME PATIENT 12.3 SEC (12.2-14.7)
[2022-01-28 09:08] LABS: ALBUMIN 4.2 GM/DL (3.2-4.5); BILIRUBIN,TOTAL 0.5 MG/DL (0.1-1.0); CALCIUM 9.4 MG/DL (8.5-10.1); CREATININE SERUM 0.7 MG/DL (0.60-1.30); POTASSIUM 3.4 MMOL/L (3.6-5.0); TOTAL PROTEIN 6.9 GM/DL (6.4-8.2)
--- NOTE | 2022-01-28 09:11 | Diagnostic Imaging Report ---
EXAMINATION: Chest 1 view HISTORY: abnormal stress test, sob, cp, htn, hlp COMPARISON: 12/02/2021 FINDINGS: Heart size is mildly enlarged. The lungs are clear without consolidation, pleural effusion, or pneumothorax. The osseous structures are intact. IMPRESSION: 1. No acute radiographic abnormality in the chest. Dictated by: Dictated on workstation # [id number]
[2022-01-28 09:24] LABS: WBC,URINE RARE /HPF
[2022-01-28 09:25] LABS: BACTERIA,URINE TRACE /HPF; HYALINE CASTS, URINE RARE /LPF
[~2022-01-28 10:00] MED LIST changes: +ASPI-1238 PO; +CETI10TA49 PO; +CHOL200059 PO; +CLN.1T PO; +FAMO20TA3 PO; +FURO20TA4 PO; +HEParin (CATH LAB) 2,000 ML IV ONE; +HEParin 1000 UNIT/ML (10ML VIAL) FOR BOLUS ONE; +HYDR-3820 PO; +KETO15CR2 TP; +LEVO50CA4 PO; +LIDOCAINE 1% INJ 50 ML (XYLOCAINE) VIAL ONE; +MIDAZOLAM 5 MG/5 ML (VERSED) VIAL ONE; +MUPI22OI2 TP; +NITRO DRIP 25000 MCG/D5W 0 ML IV ONE; +NS IV 1000 ML 1,000 ML IV SCH; +NS IV 1000 ML 1,000 ML ONE; +TR1C15 TP; +VERAPAMIL 5 MG/2 ML (CALAN) VIAL IV ONE; +VITA1TAB17 PO; +fentaNYL INJ 100 MCG/2 ML AMP ONE
[2022-01-28] MEDS ORDERED: fentaNYL INJ 100 MCG/2 ML AMP ONE (10:33)
[2022-01-28] MEDS ORDERED: MIDAZOLAM 2 MG/2 ML (VERSED) VIAL ONE (10:36)
--- NOTE | 2022-01-28 10:56 | Discharge Inst-Post CATH ---
Discharge Inst-CATH/EP Problems Reviewed?: Yes Post Cardiac Cath/EP D/C Inst Follow Up/Plan Appointment with Dr. Elise's office in 2 to 4 weeks <b>CARDIAC CATH/EP PROCEDURE DISCHARGE INSTRUCTIONS</b> ACTIVITY * Go Home directly and rest. * Limit activity of the leg (or wrist if it was used) for 7 days including aer obics, swimming, jogging, bicycling, etc. * Restrict stair-climbing for 7 days if possible, if not, climb up with your non-cath leg, then bring together on the same step. * Avoid lifting, pushing, pulling or excessive movement of the affected extremi ty for 7 days. * Customary sexual activity may be resumed after 2 days-use caution not to use a position that strains or causes pain to the affected extremity. * No driving for 24 hours. * NO SMOKING. * Avoid straining for bowel movements for 7 days. * Gentle walking on level ground is allowed. * Returning to work will depend on the type of procedure and the results. Your doctor will discuss this with you. CALL YOUR DOCTOR FOR ANY OF THE FOLLOWING: *If bleeding from the puncture site occurs- Apply gentle pressure to site with clean cloth and call your doctor or EMS. * If a knot or lump forms under the skin, increases in size, or causes pain. * If bruising appears to be worsening or moving further down your leg instead of disappearing. * Temperature above 101 F. CARE OF YOUR GROIN INCISION; * Bruising or purple discoloration of the skin near the puncture site is common. * You may shower only, no bathtub bathing for 5 days. Be careful to avoid slipping as your leg may feel stiff. * If a closure device was used on your femoral artery, please see the attached guide regarding care of the device and your leg. * Leave dressing on FOR 24 hours. CARE OF YOUR WRIST INCISION; * Bruising or purple discoloration of the skin near the puncture site is common. * You may shower. * DO NOT submerge wrist. * Leave dressing on FOR 24 hours. AARON ELISE MD Jan 28, 2022 10:56
--- NOTE | 2022-01-28 10:57 | Conscious Sedation/ASA ---
Conscious Sedation Pre-Proced Time 10:56 ASA Score 3 For ASA 3 and 4: Consider anesthesia and medical clearance. Also, for patients with a history of failed moderate sedation consider anesthesia. Airway Lungs Heart ASA score ASA 1: a normal healthy patient ASA 2: a patient with a mild systemic disease (mid diabetes, controlled hypertension, obesity x ASA 3: a patient with a severe systemic disease that limits activity (angina, COPD, prior Myocardial infarction) ASA 4: a patient with an incapacitating disease that is a constant threat to life (CHF, renal failure) ASA 5: a moribund patient not expected to survive 24 hrs. (ruptured aneurysm) ASA 6: a declared brain- patient whose organs are being harvested. For emergent operations, add the letter E after the classification Mallampati Classification Grade 3 Sedation Plan Analgesia, Amnesia, Plan communicated to team members, Discussed options with patient/fam, Discussed risks with patient/fam The patient is an appropriate candidate to undergo the planned procedure, sedation, and anesthesia. The patient immediately re-assessed prior to indication. AARON TAYLOR MD Jan 28, 2022 10:57
[2022-01-28] MEDS ORDERED: PATIENT MAY USE OWN MEDS, ALL PO SCH (11:00)
[2022-01-28] MEDS ORDERED: NS IV 1000 ML 1,000 ML IV SCH (11:00)
--- NOTE | 2022-01-28 11:01 | Cardiac Cath Report ---
Cardiac Cath Report Physician (s)/Senior Marketing Specialist (s) Physician AARON TAYLOR MD Pre-Procedure Diagnosis Pre-Procedure Diagnosis: Coronary artery disease Post-Procedure Note Procedure Start Date: Jan 28, 2022 Name of Procedure: Left heart catheterization Aortic arch angiogram Aortic root angiogram Findings/Procedure Note PROCEDURE NOTE: 66-year-old lady with history of fibromyalgia, recurrent chest pain. Had an abnormal stress test, scheduled for cardiac catheterization possible PTCA. After explaining the procedure to the patient, all pros and cons were explained, all questions were answered. The patient signed the consent and then she was placed on the cardiac catheterization laboratory. Groin was prepped SL fashion local anesthesia was used. Sheath placed in the right radial artery, I was unable to advance a wire or get any blood return through the sheath, sheath was removed and vascular band was used. Right groin was prepped in a sterile fashion, local anesthesia applied, 6 [place] sheath was placed in the right femoral artery, combination of right and left Demetrice catheter were used to evaluate the right and left coronary system. Pigtail cath was advanced, had difficulty crossing the aortic valve due to the size of the ascending aorta. Across the aortic valve and evaluated the pressure in the left ventricle, no left ventriculogram was done then it was pulled back to the aortic root and aortic root angiogram was done and aortic arch angiogram was done. At the end of the procedure the sheath was removed. Closure device was used FINDINGS: Hemodynamics LV 169/16, end-diastolic pressure of 16 Aorta 146/74 mean of 104 ANATOMY: Left Main is free of obstructive disease Left Anterior Descending has mild disease nonobstructive disease Left Circumflex has mild disease nonobstructive disease Right Coronary Artery has mild disease nonobstructive disease LV Gram was not done, pressure was measured Aorta evaluation done with aortic arch angiogram and aortic root angiogram. Aortic root angiogram showed slightly prominent ascending aorta, there is no full aneurysm or dissection. Normal aortic valve. Aortic arch angiogram showed normal aortic arch in size. There is no dissection or aneurysm, normal origin of the brachiocephalic, left carotid and left subclavian arteries. CONCLUSION: 1. Mild coronary artery disease nonobstructive disease 2. Normal left ventricular end-diastolic pressure 3. Slightly prominent ascending aorta, normal aortic arch, normal great vessels of the neck. DISCUSSION AND RECOMMENDATION: Medical therapy is recommended no intervention is warranted. Consider doing CT angiogram of the thoracic aorta in the future Anesthesia Type: Conscious Sedation Estimated blood loss (mL): 25 ml Contrast Amount: 47 ml Total Radiation Dose: 563 mGy Post-Procedure Diagnosis Post-operative diagnosis: Chest pain Coronary artery disease Hypertension Hyperlipidemia AARON TAYLOR MD Jan 28, 2022 11:01
== END 2022-01-28 15:40 | disposition home or self-care (01) ==
LOC: CATH 10:00 → SDC 11:49 → CATH 15:40
PROVIDERS: ATTEND Internal Medicine Cardiovascular Disease
DX: I25.10 Atherosclerotic heart disease of native coronary artery without angina pectoris (principal); I10 Essential (primary) hypertension; E78.2 Mixed hyperlipidemia; J45.909 Unspecified asthma, uncomplicated; R60.0 Localized edema; K58.9 Irritable bowel syndrome, unspecified; F43.23 Adjustment disorder with mixed anxiety and depressed mood; E03.9 Hypothyroidism, unspecified; E66.9 Obesity, unspecified; Z68.41 Body mass index [BMI] 40.0-44.9, adult; I65.23 Occlusion and stenosis of bilateral carotid arteries; R07.2 Precordial pain; Z79.52 Long term (current) use of systemic steroids; Z79.899 Other long term (current) drug therapy; Z79.82 Long term (current) use of aspirin
CPT/HCPCS: 36221; 71045; 80053; 80061; 81000; 85027; 85610; 85730; 87081; 93005; 93458; 93567; C1760; C1894; 36415

== ENCOUNTER → 2022-09-18 | Outpatient (CLI) | payer BC ==
[~2022-09-18] MED LIST changes: -HEParin (CATH LAB) 2,000 ML IV ONE; -HEParin 1000 UNIT/ML (10ML VIAL) FOR BOLUS ONE; -LIDOCAINE 1% INJ 50 ML (XYLOCAINE) VIAL ONE; -MIDAZOLAM 5 MG/5 ML (VERSED) VIAL ONE; -NITRO DRIP 25000 MCG/D5W 0 ML IV ONE; -NS IV 1000 ML 1,000 ML IV SCH; -NS IV 1000 ML 1,000 ML ONE; -VERAPAMIL 5 MG/2 ML (CALAN) VIAL IV ONE; -fentaNYL INJ 100 MCG/2 ML AMP ONE
--- NOTE | 2022-09-18 12:00 | Diagnostic Imaging Report ---
Indication: Routine screening. Comparison is made with prior mammograms from 09/16/2021 and 03/11/2020. 2-D and 3-D bilateral screening mammography was performed with CAD. Both breasts are heterogeneously dense, limiting the sensitivity of mammography. The parenchymal pattern appears stable. There are scattered benign calcifications. No dominant mass or malignant-appearing microcalcifications are seen. Axillae are unremarkable. IMPRESSION: BI-RADS Category 2 No mammographic features suspicious for malignancy are identified. ACR BI-RADS Category 2: Benign findings. Result letter will be mailed to the patient. Note: At least 10% of breast cancer is not imaged by mammography. Dictated by: Dictated on workstation # [id number]
== END ==
LOC: RAD 10:15
PROVIDERS: ATTEND Family Medicine
DX: Z12.31 Encounter for screening mammogram for malignant neoplasm of breast (principal)
CPT/HCPCS: 77063; 77067

== ENCOUNTER → 2023-09-21 | Outpatient (CLI) | payer BC ==
[~2023-09-21] MED LIST changes: +FAMO-356 PO; -FAMO20TA3 PO; -LOSA100T57 PO; +LOSA100T58 PO; -POTA10CA43 PO; +POTA10CA84 PO
--- NOTE | 2023-09-21 16:03 | Diagnostic Imaging Report ---
INDICATION: Routine screening. COMPARISON: 09/18/2022 and 09/16/2021. TECHNIQUE: 2D and 3D bilateral screening mammography was performed with CAD. FINDINGS: Scattered fibroglandular densities are identified bilaterally. The parenchymal pattern appears stable. The marked parenchymal heterogeneity of the right breast is stable. There are scattered benign calcifications bilaterally. No malignant-appearing microcalcifications are identified. The axillae are unremarkable. IMPRESSION: No mammographic features suspicious for malignancy are identified. ACR BI-RADS Category 2: Benign findings. Result letter will be mailed to the patient. Note: At least 10% of breast cancer is not imaged by mammography. Dictated by: Dictated on workstation # [id number]
== END ==
LOC: RAD 09:00
PROVIDERS: ATTEND Family Medicine
DX: Z12.31 Encounter for screening mammogram for malignant neoplasm of breast (principal)
CPT/HCPCS: 77063; 77067